=== PATIENT | male | born 1975 | race Asian ===

== ENCOUNTER 2020-06-26 16:55 | Inpatient (IN) | payer OTHER ==
[2020-06-26 17:33] VITALS: BMI 29.3
[2020-06-26] MEDS ORDERED: LACTATED RINGERS SOLUTION 1000 ML INFUS.BAG IV ONE (17:53)
[2020-06-26] MEDS ORDERED: ACETAMINOPHEN 1000 MG/100 ML VIAL (NON FORMULARY) IVPB ONE (17:54)
[2020-06-26] MEDS ORDERED: ACETAMINOPHEN INJECTION 100 ML IVPB ONE (18:11)
[2020-06-26 18:20] LABS: BASO % 0.6 % (0-2.0); EOS % 2.3 % (0-4.5); LYMPH % 33.5 % (8-40); MCH 30.2 pg (25.7-33.7); MCHC 34.1 g/dl (32.0-35.9); MEAN CELL VOLUME 88.5 fl (80-96); MEAN PLT VOLUME 7.4 fl (7.5-11.1); MONO % 7.6 % (3.8-10.2); PLATELET COUNT 330 K/MM3 (134-434); RBC 5.31 M/mm3 (4.00-5.60); RDW 12.8 % (11.9-15.9); WHITE BLOOD COUNT 8.3 K/mm3 (4.0-10.0)
[2020-06-26 18:33] LABS: INR 0.88 (0.83-1.09); PROTHROMBIN TIME (PATIENT) 10.9 SEC (9.7-13.0)
[2020-06-26 18:39] LABS: POTASSIUM 4.2 mmol/L (3.5-5.1)
[2020-06-26 18:41] LABS: CALCIUM 9.3 mg/dL (8.5-10.1)
[2020-06-26 18:42] LABS: ALBUMIN 4.4 g/dl (3.4-5.0); BLOOD UREA NITROGEN 10.4 mg/dL (7-18)
[2020-06-26 18:46] LABS: BILIRUBIN,TOTAL 0.8 mg/dL (0.2-1); TOT PROT 8.3 g/dl (6.4-8.2)
[2020-06-26 18:50] LABS: PH,URINE 6.5 (5.0-8.0); URINE APPEARANCE CLEAR; URINE BILIRUBIN NEGATIVE (NEGATIVE); URINE COLOR YELLOW; URINE GLUCOSE (UA) NEGATIVE (NEGATIVE); URINE KETONE NEGATIVE (NEGATIVE); URINE LEUK ESTERASE NEGATIVE (NEGATIVE); URINE NITRITE NEGATIVE (NEGATIVE); URINE PROTEIN NEGATIVE (NEGATIVE); URINE UROBILINOGEN 0.2 mg/dL (0.2-1.0)
[2020-06-26] MEDS ORDERED: PIPERACILLIN/TAZOB 4.5 GM 4.5 GM in DEXTROSE 5%-WATER 100 ML IVPB ONE (20:52)
[2020-06-26] MEDS ORDERED: PIPERACILLIN/TAZOB 4.5 GM 4.5 GM/100 ML BAG IVPB ONE (20:57)
[2020-06-26] MEDS ORDERED: LACTATED RINGERS SOLUTION 1,000 ML/1,000 ML INFUS.BAG IV SCH (21:15)
[2020-06-27] MEDS ORDERED: BUPIVACAINE HCL/PF 0.25% (2.5MG/ML) 10 ML VIAL ONE (08:36)
[2020-06-27] MEDS ORDERED: MIDAZOLAM HCL 2 MG/2 ML SINGLE DOSE VIAL ONE (08:59)
[2020-06-27] MEDS ORDERED: PROPOFOL 20 ML ONE (08:59)
[2020-06-27] MEDS ORDERED: ROCURONIUM BROMIDE 100 MG/10 ML VIAL ONE (09:00)
[2020-06-27] MEDS ORDERED: SUCCINYLCHOLINE CHLORIDE 200 MG/10 ML SYRINGE ONE (09:00)
[2020-06-27] MEDS ORDERED: ceFAZolin 2 GRAM PREMIX BAG IVPB ONE (09:49)
[2020-06-27] MEDS ORDERED: BUPIVACAINE HCL/PF 0.5% (5 MG/ML) 30 ML VIAL IJ ONE ×3 (09:55)
[2020-06-27] MEDS ORDERED: NEOSTIGMINE METHYLSULFATE 0.5 MG/ML - 10 ML MDV ONE (10:48)
[2020-06-27] MEDS ORDERED: ONDANSETRON 4 MG/2 ML VIAL IVPUSH PRN ×2 (11:15→11:36)
[2020-06-27] MEDS ORDERED: LACTATED RINGERS SOLUTION 1,000 ML IV SCH (11:15)
[2020-06-27] MEDS ORDERED: LACTATED RINGERS SOLUTION 1,000 ML/1,000 ML INFUS.BAG IV SCH (11:36)
[2020-06-27] MEDS ORDERED: oxyCODONE HCL 5 MG TABLET PO PRN (11:36)
[2020-06-27] MEDS: ACETAMINOPHEN 650 MG/20.3 ML ORAL SOLUTION (CUPS) PO SCH ×2 (14:19→21:45)
[2020-06-27] MEDS ORDERED: PNEUMOC 13-VAL CONJ-DIP CRM/PF 0.5 ML DISP.SYRIN IM ONE (16:25)
[2020-06-27] MEDS ORDERED: PNEUMOCOCCAL 23 VACCINE 0.5 ML VIAL IM ONE (17:00)
[2020-06-27] MEDS ORDERED: KETOROLAC TROMETHAMINE 30 MG/1 ML VIAL IVPUSH PRN (19:00)
[2020-06-27] MEDS ORDERED: HEPARIN NA (PORCINE) 5,000 UNITS/ML 1ML VIAL SQ SCH (22:00)
[2020-06-28] MEDS: ACETAMINOPHEN 650 MG/20.3 ML ORAL SOLUTION (CUPS) PO SCH (05:25)
[2020-06-28 06:05] VITALS: BP 115/69; PULSE 75; TEMP 97.7
== END 2020-06-28 10:06 | disposition home or self-care (01) | DRG 225 ==
LOC: JER 16:55 → JERBED 21:09 → J7W 06-27 13:36
PROVIDERS: ADMIT Internal Medicine; ATTEND Internal Medicine
PROC: 0DTJ4ZZ Resection of Appendix, Percutaneous Endoscopic Approach (ICD-10-PCS; principal; 2020-06-27 10:30)
DX: K35.80 Unspecified acute appendicitis (principal); I10 Essential (primary) hypertension
CPT/HCPCS: 36415; 71045-TC-FY; 74177-TC; 80053; 81003; 83605; 83690; 85025; 85610; 85730; 86850; 86900; 86901; 87086; 88304-TC; 90732; 93005; 93010; 94010; 94760; 99285-25; C9803; G0009; J0131; J1644; U0003

== ENCOUNTER 2021-02-12 21:51 | Emergency (ER) | payer OTHER ==
[2021-02-12 22:02] VITALS: BP 132/89; PULSE 82; TEMP 98.2; BMI 27.8
[2021-02-12] MEDS ORDERED: COLCHICINE 0.6 MG CAP PO ONE ×2 (23:10→23:30)
[2021-02-13] MEDS ORDERED: KETOROLAC TROMETHAMINE 30 MG/1 ML VIAL IM ONE (00:11)
[2021-02-13] MEDS ORDERED: KETOROLAC TROMETHAMINE 30 MG/1 ML VIAL ONE (00:45)
[2021-02-13 01:10] LABS: URIC ACID 4.3 mg/dL (2.6-7.2)
== END 2021-02-13 01:33 | disposition home or self-care (01) ==
LOC: JER 21:51
PROC: 3E0233Z Introduction of Anti-inflammatory into Muscle, Percutaneous Approach (ICD-10-PCS; principal; 2021-02-13)
DX: M79.672 Pain in left foot (principal); R22.42 Localized swelling, mass and lump, left lower limb
CPT/HCPCS: 36415; 73630-TC-LT; 84550; 85651; 86140; 99284-25